=== PATIENT | male | born 1955 | race Caucasian/White ===

== ENCOUNTER 2020-12-19 09:47 | Inpatient (IN) | payer OTHER ==
[2020-12-19] MEDS ORDERED: Furosemide 100 MG/10 ML VIAL ONE (10:03)
[2020-12-19 10:36] LABS: Actual Bicarbonate (HCO3v) 26 mEq/L (22-28); Base Excess 1.3 mEq/L (-2.0 to +3.0); Calcium, Ionized (venous) 1.12 mmol/L (1.16-1.32); Chloride (VBG) 105 mmol/L (98-106); Hemoglobin (Hb) 7.8 g/dL (13.1-17.2); Potassium (VBG) 4.18 mmol/L (3.70-5.30); Puncture Site Other Site; Sodium 138.9 mmol/L (133-146); pH (venous) 7.42 (7.32-7.43)
[2020-12-19 10:52] LABS: #Eosinphils 0.1 10x3/uL (0.0-0.5); #Monocytes 1.5 10x3/uL (0.0-1.1); #Neutrophils 10.1 10x3/uL (1.5-8.4); %Basophils 0.2 % (0.0-2.0); %Eosinophils 1.1 % (0.0-6.0); %Neutrophils 81.3 % (40.0-75.0); Mean Corpuscular HGB CONC 29.8 g/dL (32.0-36.0); Mean Corpuscular Hemoglobin 26.2 pg (27.0-33.0); Mean Platelet Volume 11.6 fl (7.4-10.4); Platelet Count 254 10x3/uL (150-450); RBC Distribution Width 15.6 % (11.5-14.5); Red Blood Cell (RBC) Count 2.67 10x6/uL (4.32-5.72); White Blood Cell (WBC) Count 12.5 10x3/uL (3.5-10.5)
[2020-12-19 11:07] LABS: ALT (SGPT) 10 U/L (8-55); AST (SGOT) 19 U/L (5-34); Albumin 3.8 g/dL (3.4-4.8); Alkaline Phosphatase 118 U/L (40-110); Anion Gap 16 mmol/L (10-20); BUN (Urea Nitrogen) 35 mg/dL (8.4-25.7); Bilirubin, Total 0.7 mg/dL (0.2-1.2); Calc. Creatinine Clearance 0 mL/min (70-130); Calcium 8.9 mg/dL (7.8-10.44); Carbon Dioxide 22 mmol/L (23-31); Chloride 106 mmol/L (98-107); Globulin 3.3 g/dL (2.4-3.5); Glucose 86 mg/dL (80-115); Potassium 4.3 mmol/L (3.5-5.1); Protein, Total 7.1 g/dL (5.8-8.1); Sodium 140 mmol/L (136-145)
[2020-12-19 11:21] LABS: SARS-CoV-2 NAA Rapid Test DETECTED (NotDetected)
[2020-12-19 11:55] LABS: Hypochromia SLIGHT = 6-15 cells (100X) (0-5/hpf); Microcytosis SLIGHT = 6-15 cells (100X) (0-5/hpf); Platelet Morphology Comment Appears Adequate
[2020-12-19] MEDS ORDERED: Dexamethasone 4 mg/ml Vial ONE (12:01)
[2020-12-19 14:26] LABS: #Eosinphils 0.1 10x3/uL (0.0-0.5); #Neutrophils 10.1 10x3/uL (1.5-8.4); %Basophils 0.2 % (0.0-2.0); %Eosinophils 0.5 % (0.0-6.0); %Lymphocytes 3.4 % (18.0-47.0); %Monocytes 8.6 % (0.0-10.0); Hemoglobin 6.9 g/dL (13.5-17.5); Mean Corpuscular HGB CONC 29.2 g/dL (32.0-36.0); Mean Corpuscular Hemoglobin 25.7 pg (27.0-33.0); Mean Corpuscular Volume 87.7 fl (81.2-95.1); Mean Platelet Volume 10.9 fl (7.4-10.4); Platelet Count 252 10x3/uL (150-450); RBC Distribution Width 15.6 % (11.5-14.5); Red Blood Cell (RBC) Count 2.69 10x6/uL (4.32-5.72); White Blood Cell (WBC) Count 11.6 10x3/uL (3.5-10.5)
[2020-12-19] MEDS ORDERED: Acetaminophen 500 MG TAB ONE (14:33)
[2020-12-19 14:47] LABS: Hypochromia SLIGHT = 6-15 cells (100X) (0-5/hpf); Microcytosis SLIGHT = 6-15 cells (100X) (0-5/hpf); Platelet Morphology Comment Appears Adequate
[2020-12-19] MEDS ORDERED: Dextrose 5% in Water 1,000 ML IV PRN (14:49)
[2020-12-19] MEDS ORDERED: Dextrose 50% Abboject 50 ML SYRINGE SLOW IVP PRN (14:49)
[2020-12-19 15:00] LABS: CKMB 2.6 ng/mL (0-6.6)
[2020-12-19 15:22] LABS: Magnesium 2.3 mg/dL (1.6-2.6)
[2020-12-19 16:48] VITALS: BMI 46.9
[2020-12-19] MEDS ORDERED: REMDESIVIR 200 MG in Sodium Chloride 0.9% 250 ML 210 ML IV SCH (20:00)
[2020-12-19] MEDS: hydrALAZINE 25 MG TAB PO SCH (23:04)
[2020-12-19] MEDS: Carvedilol 6.25 MG TAB PO SCH (23:05)
[2020-12-19] MEDS: Oxybutynin 5 MG TAB PO SCH (23:05)
[2020-12-19] MEDS: NPH, Human Insulin Isophane 300 UNIT/3 ML VIAL SC SCH (23:05)
[2020-12-19] MEDS: Docusate 100 MG CAP PO SCH (23:05)
[2020-12-19] MEDS: Ferrous Sulfate 325 MG TAB PO SCH (23:05)
[2020-12-19] MEDS: Terazosin HCl 1 MG CAP PO SCH (23:10)
[2020-12-19 23:34] LABS: Iron 15 ug/dL (65-175); Iron Binding Capacity, Total 263 mcg/dL (261-462)
[2020-12-20 06:02] LABS: #Monocytes 1.2 10x3/uL (0.0-1.1); #Neutrophils 7.6 10x3/uL (1.5-8.4); %Basophils 0.1 % (0.0-2.0); %Lymphocytes 6.6 % (18.0-47.0); %Monocytes 12.4 % (0.0-10.0); %Neutrophils 80.1 % (40.0-75.0); Hemoglobin 6.8 g/dL (13.5-17.5); Mean Corpuscular Hemoglobin 26.3 pg (27.0-33.0); Mean Corpuscular Volume 87.6 fl (81.2-95.1); Mean Platelet Volume 11.6 fl (7.4-10.4); Platelet Count 270 10x3/uL (150-450); RBC Distribution Width 15.6 % (11.5-14.5); Red Blood Cell (RBC) Count 2.59 10x6/uL (4.32-5.72); White Blood Cell (WBC) Count 9.5 10x3/uL (3.5-10.5)
[2020-12-20 06:12] LABS: Phosphorus 5.4 mg/dL (2.3-4.7)
[2020-12-20 06:21] LABS: Anion Gap 18 mmol/L (10-20); BUN (Urea Nitrogen) 47 mg/dL (8.4-25.7); Calc. Creatinine Clearance 62 mL/min (70-130); Calcium 9.2 mg/dL (7.8-10.44); Carbon Dioxide 22 mmol/L (23-31); Chloride 103 mmol/L (98-107); Glucose 230 mg/dL (80-115); Magnesium 2.5 mg/dL (1.6-2.6); Potassium 4.4 mmol/L (3.5-5.1); Sodium 139 mmol/L (136-145)
[2020-12-20 06:25] LABS: INR-International Normal Ratio 1.1; Prothrombin Time 12.4 sec (9.5-12.1)
[2020-12-20] MEDS: Furosemide 40 MG/4 ML VIAL SLOW IVP SCH ×2 (06:36→14:09)
[2020-12-20] MEDS: hydrALAZINE 25 MG TAB PO SCH ×3 (08:41→20:17)
[2020-12-20] MEDS: DULoxetine 30 MG CAP PO SCH (08:42)
[2020-12-20] MEDS: Cholecalciferol (Vitamin D3) 400 UNITS TAB PO SCH (08:42)
[2020-12-20] MEDS: Carvedilol 6.25 MG TAB PO SCH ×2 (08:42→20:17)
[2020-12-20] MEDS: Oxybutynin 5 MG TAB PO SCH ×2 (08:43→20:17)
[2020-12-20] MEDS: Ferrous Sulfate 325 MG TAB PO SCH ×3 (08:43→20:17)
[2020-12-20] MEDS: Amlodipine 10 MG TAB PO SCH (08:43)
[2020-12-20] MEDS: Zinc Sulfate 220 MG CAP PO SCH (08:43)
[2020-12-20] MEDS: Ascorbic Acid 500 mg Chewable Tablet PO SCH (08:43)
[2020-12-20] MEDS: Docusate 100 MG CAP PO SCH ×2 (08:44→20:16)
[2020-12-20] MEDS: Dexamethasone 20 MG/5 ML VIAL SLOW IVP SCH (08:44)
[2020-12-20] MEDS: NPH, Human Insulin Isophane 300 UNIT/3 ML VIAL SC SCH ×2 (08:44→20:54)
[2020-12-20] MEDS ORDERED: Dexamethasone 10 MG in Sodium Chloride 0.9% 50 ML IVPB SCH (09:00)
[2020-12-20] MEDS ORDERED: Aspirin 81 mg Enteric Coated Tablet PO SCH (09:00)
[2020-12-20] MEDS: REMDESIVIR 200 MG in Sodium Chloride 0.9% 250 ML 210 ML IV SCH ×2 (10:57→20:15)
[2020-12-20] MEDS: HumaLOG 300 UNITS/3 ML VIAL SC PRN ×3 (13:00→20:54)
[2020-12-20] MEDS ORDERED: REMDESIVIR 100 MG in Sodium Chloride 0.9% 250 ML 230 ML IV SCH (20:00)
[2020-12-20] MEDS: Terazosin HCl 1 MG CAP PO SCH (20:17)
[2020-12-21] MEDS: Furosemide 40 MG/4 ML VIAL SLOW IVP SCH ×2 (04:57→14:20)
[2020-12-21 05:27] LABS: ALT (SGPT) 12 U/L (8-55); AST (SGOT) 42 U/L (5-34); Albumin 3.5 g/dL (3.4-4.8); Alkaline Phosphatase 105 U/L (40-110); Anion Gap 17 mmol/L (10-20); BUN (Urea Nitrogen) 69 mg/dL (8.4-25.7); Bilirubin, Total 0.3 mg/dL (0.2-1.2); Calc. Creatinine Clearance 54 mL/min (70-130); Calcium 8.8 mg/dL (7.8-10.44); Carbon Dioxide 21 mmol/L (23-31); Chloride 102 mmol/L (98-107); Globulin 3.9 g/dL (2.4-3.5); Glucose 224 mg/dL (80-115); Hemoglobin 6.6 g/dL (13.5-17.5); Magnesium 2.5 mg/dL (1.6-2.6); Mean Corpuscular HGB CONC 30.8 g/dL (32.0-36.0); Mean Corpuscular Hemoglobin 26.6 pg (27.0-33.0); Mean Corpuscular Volume 86.3 fl (81.2-95.1); Mean Platelet Volume 11.9 fl (7.4-10.4); Phosphorus 5.8 mg/dL (2.3-4.7); Platelet Count 283 10x3/uL (150-450); Potassium 4.8 mmol/L (3.5-5.1); Protein, Total 7.4 g/dL (5.8-8.1); RBC Distribution Width 15.3 % (11.5-14.5); Red Blood Cell (RBC) Count 2.48 10x6/uL (4.32-5.72); Sodium 135 mmol/L (136-145); White Blood Cell (WBC) Count 12.5 10x3/uL (3.5-10.5)
[2020-12-21 05:47] LABS: MDiff Complete? YES
[2020-12-21 05:51] LABS: Band 9 % (5-11); Lymphocytes 3 % (21-51); Monocytes 17 % (0-10); Myelocyte 2 % (0-0); Neutrophil 69 % (42-75)
[2020-12-21 05:52] LABS: Platelet Morphology Comment Appears Adequate
[2020-12-21 05:53] LABS: RBC Morphology Normal
[2020-12-21] MEDS: HumaLOG 300 UNITS/3 ML VIAL SC PRN ×4 (06:32→21:58)
[2020-12-21] MEDS: Dexamethasone 20 MG/5 ML VIAL SLOW IVP SCH (08:28)
[2020-12-21] MEDS: Amlodipine 10 MG TAB PO SCH (08:28)
[2020-12-21] MEDS: Zinc Sulfate 220 MG CAP PO SCH (08:28)
[2020-12-21] MEDS: DULoxetine 30 MG CAP PO SCH (08:28)
[2020-12-21] MEDS: Cholecalciferol (Vitamin D3) 400 UNITS TAB PO SCH (08:28)
[2020-12-21] MEDS: Carvedilol 6.25 MG TAB PO SCH ×2 (08:28→21:25)
[2020-12-21] MEDS: Ferrous Sulfate 325 MG TAB PO SCH ×3 (08:28→21:25)
[2020-12-21] MEDS: Ascorbic Acid 500 mg Chewable Tablet PO SCH (08:28)
[2020-12-21] MEDS: Docusate 100 MG CAP PO SCH ×2 (08:28→21:25)
[2020-12-21] MEDS: Oxybutynin 5 MG TAB PO SCH ×2 (08:28→21:25)
[2020-12-21] MEDS: hydrALAZINE 25 MG TAB PO SCH ×3 (08:28→21:25)
[2020-12-21] MEDS: NPH, Human Insulin Isophane 300 UNIT/3 ML VIAL SC SCH ×2 (08:29→21:57)
[2020-12-21 10:03] LABS: Hemoglobin 6.5 g/dL (13.5-17.5); Mean Corpuscular HGB CONC 30.2 g/dL (32.0-36.0); Mean Corpuscular Hemoglobin 25.6 pg (27.0-33.0); Mean Corpuscular Volume 84.6 fl (81.2-95.1); Platelet Count 297 10x3/uL (150-450); RBC Distribution Width 15.6 % (11.5-14.5); Red Blood Cell (RBC) Count 2.54 10x6/uL (4.32-5.72)
[2020-12-21 10:18] LABS: Anion Gap 19 mmol/L (10-20); BUN (Urea Nitrogen) 70 mg/dL (8.4-25.7); Calc. Creatinine Clearance 53 mL/min (70-130); Calcium 8.8 mg/dL (7.8-10.44); Carbon Dioxide 20 mmol/L (23-31); Chloride 102 mmol/L (98-107); Glucose 166 mg/dL (80-115); Potassium 4.5 mmol/L (3.5-5.1); Sodium 136 mmol/L (136-145)
[2020-12-21 10:29] LABS: MDiff Complete? YES
[2020-12-21 10:35] LABS: Lymphocytes 10 % (21-51); Monocytes 10 % (0-10); Neutrophil 80 % (42-75)
[2020-12-21 10:39] LABS: White Blood Cell (WBC) Count 14.4 10x3/uL (3.5-10.5)
[2020-12-21 10:40] LABS: Platelet Morphology Comment Appears Adequate; RBC Morphology Normal
[2020-12-21] MEDS: REMDESIVIR 100 MG in Sodium Chloride 0.9% 250 ML 230 ML IV SCH (21:24)
[2020-12-21] MEDS: Terazosin HCl 1 MG CAP PO SCH (21:26)
[2020-12-22 05:02] LABS: ALT (SGPT) 15 U/L (8-55); AST (SGOT) 45 U/L (5-34); Albumin 3.5 g/dL (3.4-4.8); Alkaline Phosphatase 113 U/L (40-110); Anion Gap 18 mmol/L (10-20); BUN (Urea Nitrogen) 72 mg/dL (8.4-25.7); Bilirubin, Total 0.3 mg/dL (0.2-1.2); Calc. Creatinine Clearance 54 mL/min (70-130); Calcium 8.7 mg/dL (7.8-10.44); Carbon Dioxide 19 mmol/L (23-31); Chloride 102 mmol/L (98-107); Globulin 3.7 g/dL (2.4-3.5); Glucose 215 mg/dL (80-115); Magnesium 2.6 mg/dL (1.6-2.6); Phosphorus 5.7 mg/dL (2.3-4.7); Potassium 4.6 mmol/L (3.5-5.1); Protein, Total 7.2 g/dL (5.8-8.1); Sodium 134 mmol/L (136-145)
[2020-12-22 05:06] LABS: #Monocytes 1.8 10x3/uL (0.0-1.1); #Neutrophils 10.6 10x3/uL (1.5-8.4); %Basophils 0.1 % (0.0-2.0); %Lymphocytes 10.6 % (18.0-47.0); %Monocytes 12.7 % (0.0-10.0); %Neutrophils 75.7 % (40.0-75.0); Hemoglobin 7.8 g/dL (13.5-17.5); Mean Corpuscular HGB CONC 30.4 g/dL (32.0-36.0); Mean Corpuscular Hemoglobin 26.1 pg (27.0-33.0); Mean Platelet Volume 11.6 fl (7.4-10.4); Platelet Count 287 10x3/uL (150-450); Red Blood Cell (RBC) Count 2.99 10x6/uL (4.32-5.72)
[2020-12-22] MEDS: Furosemide 40 MG/4 ML VIAL SLOW IVP SCH ×2 (05:49→15:16)
[2020-12-22] MEDS: HumaLOG 300 UNITS/3 ML VIAL SC PRN ×3 (06:09→22:19)
[2020-12-22] MEDS: Dexamethasone 20 MG/5 ML VIAL SLOW IVP SCH (09:00)
[2020-12-22] MEDS: Carvedilol 6.25 MG TAB PO SCH ×2 (09:01→21:31)
[2020-12-22] MEDS: Oxybutynin 5 MG TAB PO SCH ×2 (09:01→21:31)
[2020-12-22] MEDS: Amlodipine 10 MG TAB PO SCH (09:01)
[2020-12-22] MEDS: Cholecalciferol (Vitamin D3) 400 UNITS TAB PO SCH (09:01)
[2020-12-22] MEDS: hydrALAZINE 25 MG TAB PO SCH ×3 (09:01→21:31)
[2020-12-22] MEDS: NPH, Human Insulin Isophane 300 UNIT/3 ML VIAL SC SCH ×2 (09:01→22:20)
[2020-12-22] MEDS: Ascorbic Acid 500 mg Chewable Tablet PO SCH (09:01)
[2020-12-22] MEDS: Docusate 100 MG CAP PO SCH ×2 (09:01→21:31)
[2020-12-22] MEDS: Zinc Sulfate 220 MG CAP PO SCH (09:01)
[2020-12-22] MEDS: Ferrous Sulfate 325 MG TAB PO SCH ×3 (09:01→21:31)
[2020-12-22] MEDS: DULoxetine 30 MG CAP PO SCH (09:01)
[2020-12-22] MEDS: Terazosin HCl 1 MG CAP PO SCH (22:19)
[2020-12-22] MEDS: REMDESIVIR 100 MG in Sodium Chloride 0.9% 250 ML 230 ML IV SCH (22:55)
[2020-12-23 05:28] LABS: ALT (SGPT) 16 U/L (8-55); AST (SGOT) 39 U/L (5-34); Albumin 3.5 g/dL (3.4-4.8); Alkaline Phosphatase 96 U/L (40-110); Anion Gap 19 mmol/L (10-20); BUN (Urea Nitrogen) 82 mg/dL (8.4-25.7); Bilirubin, Total 0.5 mg/dL (0.2-1.2); Calc. Creatinine Clearance 58 mL/min (70-130); Calcium 8.6 mg/dL (7.8-10.44); Carbon Dioxide 20 mmol/L (23-31); Chloride 100 mmol/L (98-107); Globulin 3.6 g/dL (2.4-3.5); Glucose 230 mg/dL (80-115); Magnesium 2.6 mg/dL (1.6-2.6); Phosphorus 5.7 mg/dL (2.3-4.7); Potassium 4.5 mmol/L (3.5-5.1); Protein, Total 7.1 g/dL (5.8-8.1); Sodium 134 mmol/L (136-145)
[2020-12-23] MEDS: Furosemide 40 MG/4 ML VIAL SLOW IVP SCH ×2 (05:43→14:59)
[2020-12-23] MEDS: HumaLOG 300 UNITS/3 ML VIAL SC PRN ×2 (06:10→21:51)
[2020-12-23 07:01] LABS: Hemoglobin 8.7 g/dL (13.5-17.5); MDiff Complete? YES; Mean Corpuscular HGB CONC 31.6 g/dL (32.0-36.0); Mean Corpuscular Hemoglobin 26.4 pg (27.0-33.0); Mean Corpuscular Volume 83.3 fl (81.2-95.1); Platelet Count 292 10x3/uL (150-450); White Blood Cell (WBC) Count 19.7 10x3/uL (3.5-10.5)
[2020-12-23 07:05] LABS: Band 14 % (5-11); Eosinophils 1 % (0-10); Lymphocytes 16 % (21-51); Monocytes 8 % (0-10); Neutrophil 61 % (42-75)
[2020-12-23 07:14] LABS: Platelet Morphology Comment Appears Adequate; RBC Morphology Normal
[2020-12-23] MEDS: NPH, Human Insulin Isophane 300 UNIT/3 ML VIAL SC SCH ×2 (09:25→21:51)
[2020-12-23] MEDS: hydrALAZINE 25 MG TAB PO SCH ×3 (09:26→21:50)
[2020-12-23] MEDS: Amlodipine 10 MG TAB PO SCH (09:26)
[2020-12-23] MEDS: Carvedilol 6.25 MG TAB PO SCH ×2 (09:26→21:50)
[2020-12-23] MEDS: Zinc Sulfate 220 MG CAP PO SCH (09:26)
[2020-12-23] MEDS: Aspirin 81 mg Enteric Coated Tablet PO SCH (09:27)
[2020-12-23] MEDS: Ferrous Sulfate 325 MG TAB PO SCH ×3 (09:27→21:03)
[2020-12-23] MEDS: DULoxetine 30 MG CAP PO SCH (09:27)
[2020-12-23] MEDS: Oxybutynin 5 MG TAB PO SCH ×2 (09:27→21:03)
[2020-12-23] MEDS: Dexamethasone 20 MG/5 ML VIAL SLOW IVP SCH (09:27)
[2020-12-23] MEDS: Cholecalciferol (Vitamin D3) 400 UNITS TAB PO SCH (09:27)
[2020-12-23] MEDS: Docusate 100 MG CAP PO SCH ×3 (09:27→21:50)
[2020-12-23] MEDS: Ascorbic Acid 500 mg Chewable Tablet PO SCH (09:27)
[2020-12-23] MEDS ORDERED: cefTRIAXone\\ROCEPHIN 2 GM in Sodium Chloride 0.9% 100 ML IVPB SCH (16:30)
[2020-12-23] MEDS: Azithromycin 250 MG TAB PO SCH (17:54)
[2020-12-23] MEDS: cefTRIAXone\\ROCEPHIN 2 GM in Sodium Chloride 0.9% 100 ML IVPB SCH (17:54)
[2020-12-23] MEDS: REMDESIVIR 100 MG in Sodium Chloride 0.9% 250 ML 230 ML IV SCH (21:02)
[2020-12-23] MEDS: Benzonatate 100 MG CAP PO PRN (21:03)
[2020-12-23] MEDS: Terazosin HCl 1 MG CAP PO SCH (21:04)
[2020-12-23 22:12] LABS: Legionella Urinary Ag Negative (Negative); Strep pneumo Urine Ag NEGATIVE (NEGATIVE)
[2020-12-24 05:14] LABS: #Monocytes 1.7 10x3/uL (0.0-1.1); #Neutrophils 14.9 10x3/uL (1.5-8.4); %Basophils 0.1 % (0.0-2.0); %Lymphocytes 10.4 % (18.0-47.0); %Monocytes 8.8 % (0.0-10.0); %Neutrophils 79.3 % (40.0-75.0); Hemoglobin 8.7 g/dL (13.5-17.5); Mean Corpuscular HGB CONC 31.3 g/dL (32.0-36.0); Mean Corpuscular Hemoglobin 26.3 pg (27.0-33.0); Mean Platelet Volume 11.3 fl (7.4-10.4); Platelet Count 293 10x3/uL (150-450); RBC Distribution Width 15.3 % (11.5-14.5); Red Blood Cell (RBC) Count 3.31 10x6/uL (4.32-5.72); White Blood Cell (WBC) Count 18.8 10x3/uL (3.5-10.5)
[2020-12-24] MEDS: Furosemide 40 MG/4 ML VIAL SLOW IVP SCH ×2 (05:49→12:30)
[2020-12-24 05:52] LABS: ALT (SGPT) 18 U/L (8-55); AST (SGOT) 35 U/L (5-34); Albumin 3.4 g/dL (3.4-4.8); Alkaline Phosphatase 102 U/L (40-110); Anion Gap 16 mmol/L (10-20); BUN (Urea Nitrogen) 93 mg/dL (8.4-25.7); Bilirubin, Total 0.3 mg/dL (0.2-1.2); Calc. Creatinine Clearance 59 mL/min (70-130); Calcium 9.1 mg/dL (7.8-10.44); Carbon Dioxide 22 mmol/L (23-31); Chloride 101 mmol/L (98-107); Globulin 3.8 g/dL (2.4-3.5); Glucose 273 mg/dL (80-115); Magnesium 2.8 mg/dL (1.6-2.6); Phosphorus 5.9 mg/dL (2.3-4.7); Potassium 4.2 mmol/L (3.5-5.1); Protein, Total 7.2 g/dL (5.8-8.1); Sodium 135 mmol/L (136-145)
[2020-12-24] MEDS: HumaLOG 300 UNITS/3 ML VIAL SC PRN ×4 (06:10→21:19)
[2020-12-24] MEDS: Docusate 100 MG CAP PO SCH ×2 (08:56→20:44)
[2020-12-24] MEDS: DULoxetine 30 MG CAP PO SCH (08:56)
[2020-12-24] MEDS: Oxybutynin 5 MG TAB PO SCH ×2 (08:56→20:44)
[2020-12-24] MEDS: Ferrous Sulfate 325 MG TAB PO SCH ×3 (08:56→20:43)
[2020-12-24] MEDS: Amlodipine 10 MG TAB PO SCH (08:57)
[2020-12-24] MEDS: Aspirin 81 mg Enteric Coated Tablet PO SCH (08:57)
[2020-12-24] MEDS: Cholecalciferol (Vitamin D3) 400 UNITS TAB PO SCH (08:57)
[2020-12-24] MEDS: Ascorbic Acid 500 mg Chewable Tablet PO SCH (08:57)
[2020-12-24] MEDS: hydrALAZINE 25 MG TAB PO SCH ×3 (08:57→21:17)
[2020-12-24] MEDS: Carvedilol 6.25 MG TAB PO SCH ×2 (08:57→21:18)
[2020-12-24] MEDS: Zinc Sulfate 220 MG CAP PO SCH (08:58)
[2020-12-24] MEDS: Dexamethasone 20 MG/5 ML VIAL SLOW IVP SCH (08:58)
[2020-12-24] MEDS: NPH, Human Insulin Isophane 300 UNIT/3 ML VIAL SC SCH (08:59)
[2020-12-24] MEDS: Azithromycin 250 MG TAB PO SCH (17:44)
[2020-12-24] MEDS: cefTRIAXone\\ROCEPHIN 2 GM in Sodium Chloride 0.9% 100 ML IVPB SCH (17:44)
[2020-12-24] MEDS: Terazosin HCl 1 MG CAP PO SCH (20:44)
[2020-12-24] MEDS: Benzonatate 100 MG CAP PO PRN (20:45)
[2020-12-24] MEDS: Acetaminophen 325 MG TAB PO PRN (20:45)
[2020-12-24] MEDS: REMDESIVIR 100 MG in Sodium Chloride 0.9% 250 ML 230 ML IV SCH (20:46)
[2020-12-24] MEDS ORDERED: NPH, Human Insulin Isophane 300 UNIT/3 ML VIAL SC SCH (21:00)
[2020-12-25 05:01] LABS: ALT (SGPT) 16 U/L (8-55); AST (SGOT) 27 U/L (5-34); Albumin 3.5 g/dL (3.4-4.8); Alkaline Phosphatase 108 U/L (40-110); Anion Gap 18 mmol/L (10-20); BUN (Urea Nitrogen) 97 mg/dL (8.4-25.7); Bilirubin, Total 0.3 mg/dL (0.2-1.2); Calc. Creatinine Clearance 55 mL/min (70-130); Carbon Dioxide 20 mmol/L (23-31); Chloride 101 mmol/L (98-107); Globulin 3.8 g/dL (2.4-3.5); Glucose 361 mg/dL (80-115); Protein, Total 7.3 g/dL (5.8-8.1); Sodium 134 mmol/L (136-145)
[2020-12-25] MEDS: Furosemide 40 MG/4 ML VIAL SLOW IVP SCH ×2 (05:13→15:30)
[2020-12-25] MEDS: Acetaminophen 325 MG TAB PO PRN (05:13)
[2020-12-25] MEDS: Benzonatate 100 MG CAP PO PRN (05:14)
[2020-12-25] MEDS: HumaLOG 300 UNITS/3 ML VIAL SC PRN ×4 (05:43→22:09)
[2020-12-25] MEDS ORDERED: NPH, Human Insulin Isophane 300 UNIT/3 ML VIAL SC SCH (09:00)
[2020-12-25] MEDS: Ferrous Sulfate 325 MG TAB PO SCH ×3 (09:45→21:13)
[2020-12-25] MEDS: Oxybutynin 5 MG TAB PO SCH ×2 (09:45→21:14)
[2020-12-25] MEDS: Zinc Sulfate 220 MG CAP PO SCH (09:45)
[2020-12-25] MEDS: Amlodipine 10 MG TAB PO SCH (09:45)
[2020-12-25] MEDS: Cholecalciferol (Vitamin D3) 400 UNITS TAB PO SCH (09:45)
[2020-12-25] MEDS: Dexamethasone 20 MG/5 ML VIAL SLOW IVP SCH (09:45)
[2020-12-25] MEDS: Carvedilol 6.25 MG TAB PO SCH ×2 (09:45→21:13)
[2020-12-25] MEDS: Docusate 100 MG CAP PO SCH ×2 (09:46→21:13)
[2020-12-25] MEDS: hydrALAZINE 25 MG TAB PO SCH ×3 (09:46→21:13)
[2020-12-25] MEDS: Ascorbic Acid 500 mg Chewable Tablet PO SCH (09:46)
[2020-12-25] MEDS: Aspirin 81 mg Enteric Coated Tablet PO SCH (09:46)
[2020-12-25] MEDS: DULoxetine 30 MG CAP PO SCH (12:30)
[2020-12-25] MEDS: Azithromycin 250 MG TAB PO SCH (18:00)
[2020-12-25] MEDS: cefTRIAXone\\ROCEPHIN 2 GM in Sodium Chloride 0.9% 100 ML IVPB SCH (18:06)
[2020-12-25] MEDS: Terazosin HCl 1 MG CAP PO SCH (21:14)
[2020-12-25] MEDS: NPH, Human Insulin Isophane 300 UNIT/3 ML VIAL SC SCH (22:09)
[2020-12-26] MEDS: Furosemide 40 MG/4 ML VIAL SLOW IVP SCH ×2 (06:12→15:00)
[2020-12-26] MEDS: HumaLOG 300 UNITS/3 ML VIAL SC PRN ×4 (06:36→22:26)
[2020-12-26 07:14] LABS: #Basophils 0.1 10x3/uL (0.0-0.2); #Monocytes 1.3 10x3/uL (0.0-1.1); #Neutrophils 14.4 10x3/uL (1.5-8.4); %Basophils 0.3 % (0.0-2.0); %Lymphocytes 14.7 % (18.0-47.0); %Monocytes 6.6 % (0.0-10.0); %Neutrophils 73.6 % (40.0-75.0); Hemoglobin 8.9 g/dL (13.5-17.5); Mean Corpuscular HGB CONC 31.1 g/dL (32.0-36.0); Mean Corpuscular Hemoglobin 26.4 pg (27.0-33.0); Mean Corpuscular Volume 84.9 fl (81.2-95.1); Mean Platelet Volume 11.3 fl (7.4-10.4); Platelet Count 317 10x3/uL (150-450); RBC Distribution Width 15.3 % (11.5-14.5); Red Blood Cell (RBC) Count 3.37 10x6/uL (4.32-5.72); White Blood Cell (WBC) Count 19.5 10x3/uL (3.5-10.5)
[2020-12-26 07:26] LABS: ALT (SGPT) 15 U/L (8-55); AST (SGOT) 22 U/L (5-34); Albumin 3.3 g/dL (3.4-4.8); Alkaline Phosphatase 97 U/L (40-110); Anion Gap 18 mmol/L (10-20); BUN (Urea Nitrogen) 98 mg/dL (8.4-25.7); Bilirubin, Total 0.3 mg/dL (0.2-1.2); Calc. Creatinine Clearance 64 mL/min (70-130); Calcium 8.8 mg/dL (7.8-10.44); Carbon Dioxide 21 mmol/L (23-31); Chloride 101 mmol/L (98-107); Globulin 3.6 g/dL (2.4-3.5); Glucose 227 mg/dL (80-115); Magnesium 2.8 mg/dL (1.6-2.6); Phosphorus 5.2 mg/dL (2.3-4.7); Potassium 4.5 mmol/L (3.5-5.1); Protein, Total 6.9 g/dL (5.8-8.1); Sodium 135 mmol/L (136-145)
[2020-12-26] MEDS: Carvedilol 6.25 MG TAB PO SCH ×2 (08:05→21:59)
[2020-12-26] MEDS: Dexamethasone 20 MG/5 ML VIAL SLOW IVP SCH (08:05)
[2020-12-26] MEDS: hydrALAZINE 25 MG TAB PO SCH ×4 (08:05→21:59)
[2020-12-26] MEDS: Zinc Sulfate 220 MG CAP PO SCH (08:06)
[2020-12-26] MEDS: Amlodipine 10 MG TAB PO SCH (08:06)
[2020-12-26] MEDS: Ascorbic Acid 500 mg Chewable Tablet PO SCH (08:06)
[2020-12-26] MEDS: DULoxetine 30 MG CAP PO SCH (08:06)
[2020-12-26] MEDS: Aspirin 81 mg Enteric Coated Tablet PO SCH (08:06)
[2020-12-26] MEDS: Oxybutynin 5 MG TAB PO SCH ×2 (08:06→21:59)
[2020-12-26] MEDS: Docusate 100 MG CAP PO SCH ×2 (08:07→21:59)
[2020-12-26] MEDS: Ferrous Sulfate 325 MG TAB PO SCH ×3 (08:07→21:59)
[2020-12-26] MEDS: Cholecalciferol (Vitamin D3) 400 UNITS TAB PO SCH (08:07)
[2020-12-26] MEDS: NPH, Human Insulin Isophane 300 UNIT/3 ML VIAL SC SCH ×2 (09:30→22:25)
[2020-12-26] MEDS: Azithromycin 250 MG TAB PO SCH (17:28)
[2020-12-26] MEDS: cefTRIAXone\\ROCEPHIN 2 GM in Sodium Chloride 0.9% 100 ML IVPB SCH (18:43)
[2020-12-26] MEDS: Terazosin HCl 1 MG CAP PO SCH (21:59)
[2020-12-27] MEDS: Ventolin HFA Inhaler 60 PUFF INHALER INH SCH ×8 (02:15→22:50)
[2020-12-27 06:20] LABS: Hemoglobin 9.1 g/dL (13.5-17.5); Mean Corpuscular HGB CONC 30.6 g/dL (32.0-36.0); Mean Corpuscular Hemoglobin 25.8 pg (27.0-33.0); Mean Corpuscular Volume 84.1 fl (81.2-95.1); Platelet Count 324 10x3/uL (150-450); RBC Distribution Width 15.3 % (11.5-14.5); Red Blood Cell (RBC) Count 3.53 10x6/uL (4.32-5.72); White Blood Cell (WBC) Count 18.2 10x3/uL (3.5-10.5)
[2020-12-27] MEDS: HumaLOG 300 UNITS/3 ML VIAL SC PRN ×4 (06:39→21:13)
[2020-12-27 07:05] LABS: MDiff Complete? YES
[2020-12-27 07:06] LABS: ALT (SGPT) 17 U/L (8-55); AST (SGOT) 19 U/L (5-34); Albumin 3.3 g/dL (3.4-4.8); Alkaline Phosphatase 106 U/L (40-110); Anion Gap 16 mmol/L (10-20); BUN (Urea Nitrogen) 99 mg/dL (8.4-25.7); Bilirubin, Total 0.3 mg/dL (0.2-1.2); Calc. Creatinine Clearance 65 mL/min (70-130); Calcium 8.7 mg/dL (7.8-10.44); Carbon Dioxide 22 mmol/L (23-31); Chloride 99 mmol/L (98-107); Globulin 3.6 g/dL (2.4-3.5); Glucose 327 mg/dL (80-115); Potassium 4.4 mmol/L (3.5-5.1); Protein, Total 6.9 g/dL (5.8-8.1); Sodium 133 mmol/L (136-145)
[2020-12-27 07:09] LABS: Band 4 % (5-11); Lymphocytes 20 % (21-51); Monocytes 2 % (0-10); Neutrophil 74 % (42-75)
[2020-12-27 07:10] LABS: Platelet Morphology Comment Appears Adequate; RBC Morphology Normal
[2020-12-27 08:41] LABS: Mean Platelet Volume 11.5 fl (7.4-10.4)
[2020-12-27] MEDS: Amlodipine 10 MG TAB PO SCH (08:57)
[2020-12-27] MEDS: Ascorbic Acid 500 mg Chewable Tablet PO SCH (08:57)
[2020-12-27] MEDS: Zinc Sulfate 220 MG CAP PO SCH (08:57)
[2020-12-27] MEDS: Carvedilol 6.25 MG TAB PO SCH ×2 (08:57→21:12)
[2020-12-27] MEDS: Cholecalciferol (Vitamin D3) 400 UNITS TAB PO SCH (08:57)
[2020-12-27] MEDS: Oxybutynin 5 MG TAB PO SCH ×2 (08:58→20:19)
[2020-12-27] MEDS: hydrALAZINE 25 MG TAB PO SCH ×3 (08:58→21:11)
[2020-12-27] MEDS: Ferrous Sulfate 325 MG TAB PO SCH ×3 (08:58→20:19)
[2020-12-27] MEDS: Aspirin 81 mg Enteric Coated Tablet PO SCH (08:58)
[2020-12-27] MEDS: Docusate 100 MG CAP PO SCH ×2 (08:58→20:19)
[2020-12-27] MEDS: DULoxetine 30 MG CAP PO SCH (08:58)
[2020-12-27] MEDS: Furosemide 40 MG/4 ML VIAL SLOW IVP SCH (08:59)
[2020-12-27] MEDS: NPH, Human Insulin Isophane 300 UNIT/3 ML VIAL SC SCH ×2 (08:59→21:12)
[2020-12-27] MEDS ORDERED: Dexamethasone 20 MG/5 ML VIAL SLOW IVP SCH (09:00)
[2020-12-27] MEDS ORDERED: Tiotropium Bromide 4 GM INHALER IH SCH (14:00)
[2020-12-27] MEDS: Azithromycin 250 MG TAB PO SCH (17:59)
[2020-12-27] MEDS: guaiFENesin/Codeine Phosphate 100 mg/10 mg 5 ml UD Cup PO PRN (20:19)
[2020-12-27] MEDS: Terazosin HCl 1 MG CAP PO SCH (20:19)
[2020-12-27] MEDS: Acetaminophen 325 MG TAB PO PRN (20:20)
[2020-12-27] MEDS: cefTRIAXone\\ROCEPHIN 2 GM in Sodium Chloride 0.9% 100 ML IVPB SCH (22:38)
[2020-12-27] MEDS: Dexamethasone 20 MG/5 ML VIAL SLOW IVP SCH (22:39)
[2020-12-27 23:36] LABS: Mycoplasma pneumoniae IgG AB 245 U/mL (0-99); Mycoplasma pneumoniae IgM AB Less than 770 U/mL (0-769)
[2020-12-28] MEDS: Ventolin HFA Inhaler 60 PUFF INHALER INH SCH ×6 (03:20→23:00)
[2020-12-28 04:29] LABS: ALT (SGPT) 16 U/L (8-55); AST (SGOT) 19 U/L (5-34); Albumin 3.3 g/dL (3.4-4.8); Alkaline Phosphatase 94 U/L (40-110); Anion Gap 16 mmol/L (10-20); BUN (Urea Nitrogen) 93 mg/dL (8.4-25.7); Bilirubin, Total 0.2 mg/dL (0.2-1.2); Calc. Creatinine Clearance 65 mL/min (70-130); Calcium 8.8 mg/dL (7.8-10.44); Carbon Dioxide 22 mmol/L (23-31); Chloride 103 mmol/L (98-107); Globulin 3.5 g/dL (2.4-3.5); Glucose 165 mg/dL (80-115); Protein, Total 6.8 g/dL (5.8-8.1); Sodium 136 mmol/L (136-145)
[2020-12-28 05:07] LABS: Hemoglobin 8.8 g/dL (13.5-17.5); Mean Corpuscular HGB CONC 30.8 g/dL (32.0-36.0); Mean Corpuscular Hemoglobin 26.1 pg (27.0-33.0); Mean Corpuscular Volume 84.9 fl (81.2-95.1); Mean Platelet Volume 11.5 fl (7.4-10.4); Platelet Count 331 10x3/uL (150-450); RBC Distribution Width 15.2 % (11.5-14.5); Red Blood Cell (RBC) Count 3.37 10x6/uL (4.32-5.72); White Blood Cell (WBC) Count 21.8 10x3/uL (3.5-10.5)
[2020-12-28 06:29] LABS: MDiff Complete? YES
[2020-12-28 06:33] LABS: Band 3 % (5-11); Lymphocytes 12 % (21-51); Metamyelocyte 2 % (0-0); Monocytes 10 % (0-10); Neutrophil 66 % (42-75); Reactive Lymphocytes 7 % (0-10)
[2020-12-28] MEDS: Tiotropium Bromide 4 GM INHALER IH SCH (07:06)
[2020-12-28] MEDS: Dexamethasone 20 MG/5 ML VIAL SLOW IVP SCH ×2 (08:19→20:35)
[2020-12-28] MEDS: Aspirin 81 mg Enteric Coated Tablet PO SCH (08:19)
[2020-12-28] MEDS: Furosemide 40 MG/4 ML VIAL SLOW IVP SCH (08:19)
[2020-12-28] MEDS: Ascorbic Acid 500 mg Chewable Tablet PO SCH (08:19)
[2020-12-28] MEDS: DULoxetine 30 MG CAP PO SCH (08:19)
[2020-12-28] MEDS: Amlodipine 10 MG TAB PO SCH (08:19)
[2020-12-28] MEDS: Zinc Sulfate 220 MG CAP PO SCH (08:19)
[2020-12-28] MEDS: Ferrous Sulfate 325 MG TAB PO SCH ×3 (08:19→20:35)
[2020-12-28] MEDS: hydrALAZINE 25 MG TAB PO SCH ×3 (08:19→21:55)
[2020-12-28] MEDS: Carvedilol 6.25 MG TAB PO SCH ×2 (08:19→21:55)
[2020-12-28] MEDS: Polyethylene Glycol 3350 17 GM Packet PO SCH (08:19)
[2020-12-28] MEDS: NPH, Human Insulin Isophane 300 UNIT/3 ML VIAL SC SCH ×2 (08:20→21:50)
[2020-12-28] MEDS: Docusate 100 MG CAP PO SCH ×2 (08:20→20:34)
[2020-12-28] MEDS: Cholecalciferol (Vitamin D3) 400 UNITS TAB PO SCH (08:20)
[2020-12-28] MEDS: Oxybutynin 5 MG TAB PO SCH ×2 (08:20→20:36)
[2020-12-28] MEDS: HumaLOG 300 UNITS/3 ML VIAL SC PRN ×3 (12:51→21:50)
[2020-12-28] MEDS: Azithromycin 250 MG TAB PO SCH (15:59)
[2020-12-28] MEDS: Terazosin HCl 1 MG CAP PO SCH (20:34)
[2020-12-28] MEDS: guaiFENesin/Codeine Phosphate 100 mg/10 mg 5 ml UD Cup PO PRN (20:37)
[2020-12-28] MEDS: Acetaminophen 325 MG TAB PO PRN (20:37)
[2020-12-28] MEDS ORDERED: cefTRIAXone\\ROCEPHIN 2 GM in Sodium Chloride 0.9% 100 ML IVPB SCH (22:00)
[2020-12-29] MEDS: HumaLOG 300 UNITS/3 ML VIAL SC PRN ×6 (00:15→21:03)
[2020-12-29] MEDS: Ventolin HFA Inhaler 60 PUFF INHALER INH SCH ×6 (03:20→23:20)
[2020-12-29 04:28] LABS: Mean Corpuscular HGB CONC 30.6 g/dL (32.0-36.0); Mean Corpuscular Hemoglobin 26.3 pg (27.0-33.0); Mean Platelet Volume 11.6 fl (7.4-10.4); Platelet Count 329 10x3/uL (150-450); RBC Distribution Width 15.1 % (11.5-14.5); Red Blood Cell (RBC) Count 3.42 10x6/uL (4.32-5.72); White Blood Cell (WBC) Count 19.1 10x3/uL (3.5-10.5)
[2020-12-29 04:43] LABS: ALT (SGPT) 18 U/L (8-55); AST (SGOT) 19 U/L (5-34); Albumin 3.4 g/dL (3.4-4.8); Alkaline Phosphatase 97 U/L (40-110); Anion Gap 18 mmol/L (10-20); BUN (Urea Nitrogen) 95 mg/dL (8.4-25.7); Bilirubin, Total 0.2 mg/dL (0.2-1.2); Calc. Creatinine Clearance 65 mL/min (70-130); Carbon Dioxide 22 mmol/L (23-31); Chloride 101 mmol/L (98-107); Globulin 3.6 g/dL (2.4-3.5); Glucose 244 mg/dL (80-115); Sodium 136 mmol/L (136-145)
[2020-12-29 06:39] LABS: MDiff Complete? YES
[2020-12-29 06:44] LABS: Band 2 % (5-11); Lymphocytes 17 % (21-51); Monocytes 6 % (0-10); Neutrophil 74 % (42-75); Reactive Lymphocytes 1 % (0-10)
[2020-12-29 06:47] LABS: Platelet Morphology Comment Appears Adequate; RBC Morphology Normal
[2020-12-29] MEDS: Furosemide 40 MG/4 ML VIAL SLOW IVP SCH (08:44)
[2020-12-29] MEDS: Ascorbic Acid 500 mg Chewable Tablet PO SCH (08:44)
[2020-12-29] MEDS: Docusate 100 MG CAP PO SCH ×3 (08:44→21:04)
[2020-12-29] MEDS: Dexamethasone 20 MG/5 ML VIAL SLOW IVP SCH (08:44)
[2020-12-29] MEDS: Polyethylene Glycol 3350 17 GM Packet PO SCH (08:44)
[2020-12-29] MEDS: DULoxetine 30 MG CAP PO SCH (08:44)
[2020-12-29] MEDS: Ferrous Sulfate 325 MG TAB PO SCH ×3 (08:44→20:14)
[2020-12-29] MEDS: Carvedilol 6.25 MG TAB PO SCH ×2 (08:45→20:15)
[2020-12-29] MEDS: Zinc Sulfate 220 MG CAP PO SCH (08:45)
[2020-12-29] MEDS: hydrALAZINE 25 MG TAB PO SCH ×3 (08:45→20:14)
[2020-12-29] MEDS: Oxybutynin 5 MG TAB PO SCH ×2 (08:45→20:15)
[2020-12-29] MEDS: Aspirin 81 mg Enteric Coated Tablet PO SCH (08:45)
[2020-12-29] MEDS: Amlodipine 10 MG TAB PO SCH (08:45)
[2020-12-29] MEDS: Cholecalciferol (Vitamin D3) 400 UNITS TAB PO SCH (08:45)
[2020-12-29] MEDS: NPH, Human Insulin Isophane 300 UNIT/3 ML VIAL SC SCH ×2 (08:45→21:02)
[2020-12-29] MEDS: Tiotropium Bromide 4 GM INHALER IH SCH (10:50)
[2020-12-29] MEDS ORDERED: Furosemide 40 MG/4 ML VIAL SLOW IVP SCH (13:00)
[2020-12-29] MEDS: Terazosin HCl 1 MG CAP PO SCH (20:14)
[2020-12-30] MEDS: Ventolin HFA Inhaler 60 PUFF INHALER INH SCH ×3 (03:20→11:04)
[2020-12-30 04:17] LABS: ALT (SGPT) 20 U/L (8-55); AST (SGOT) 18 U/L (5-34); Albumin 3.2 g/dL (3.4-4.8); Alkaline Phosphatase 111 U/L (40-110); Anion Gap 15 mmol/L (10-20); BUN (Urea Nitrogen) 97 mg/dL (8.4-25.7); Bilirubin, Total 0.2 mg/dL (0.2-1.2); Calc. Creatinine Clearance 71 mL/min (70-130); Carbon Dioxide 22 mmol/L (23-31); Chloride 102 mmol/L (98-107); Globulin 3.5 g/dL (2.4-3.5); Glucose 343 mg/dL (80-115); Potassium 4.8 mmol/L (3.5-5.1); Protein, Total 6.7 g/dL (5.8-8.1); Sodium 134 mmol/L (136-145)
[2020-12-30 04:23] LABS: Hemoglobin 9.1 g/dL (13.5-17.5); Mean Corpuscular HGB CONC 31.1 g/dL (32.0-36.0); Mean Corpuscular Hemoglobin 26.7 pg (27.0-33.0); Mean Corpuscular Volume 85.9 fl (81.2-95.1); Mean Platelet Volume 11.6 fl (7.4-10.4); Platelet Count 323 10x3/uL (150-450); RBC Distribution Width 15.4 % (11.5-14.5); Red Blood Cell (RBC) Count 3.41 10x6/uL (4.32-5.72)
[2020-12-30 04:54] LABS: MDiff Complete? YES
[2020-12-30 04:56] LABS: Lymphocytes 20 % (21-51); Monocytes 6 % (0-10); Neutrophil 74 % (42-75)
[2020-12-30 04:58] LABS: Platelet Morphology Comment Appears Adequate; RBC Morphology Normal
[2020-12-30] MEDS: HumaLOG 300 UNITS/3 ML VIAL SC PRN ×2 (05:32→11:59)
[2020-12-30] MEDS: Tiotropium Bromide 4 GM INHALER IH SCH (08:11)
[2020-12-30] MEDS: DULoxetine 30 MG CAP PO SCH (08:12)
[2020-12-30] MEDS: Polyethylene Glycol 3350 17 GM Packet PO SCH (08:12)
[2020-12-30] MEDS: Zinc Sulfate 220 MG CAP PO SCH (08:12)
[2020-12-30] MEDS: hydrALAZINE 25 MG TAB PO SCH (08:12)
[2020-12-30] MEDS: Oxybutynin 5 MG TAB PO SCH (08:13)
[2020-12-30] MEDS: Ferrous Sulfate 325 MG TAB PO SCH (08:13)
[2020-12-30] MEDS: Ascorbic Acid 500 mg Chewable Tablet PO SCH (08:13)
[2020-12-30] MEDS: Carvedilol 6.25 MG TAB PO SCH (08:13)
[2020-12-30] MEDS: Docusate 100 MG CAP PO SCH (08:13)
[2020-12-30] MEDS: Aspirin 81 mg Enteric Coated Tablet PO SCH (08:13)
[2020-12-30] MEDS: Cholecalciferol (Vitamin D3) 400 UNITS TAB PO SCH (08:14)
[2020-12-30] MEDS: Furosemide 40 MG/4 ML VIAL SLOW IVP SCH (08:15)
[2020-12-30] MEDS: NPH, Human Insulin Isophane 300 UNIT/3 ML VIAL SC SCH (08:16)
[2020-12-30] MEDS ORDERED: Dexamethasone 20 MG/5 ML VIAL SLOW IVP SCH (09:00)
[2020-12-30] MEDS ORDERED: Losartan 25 MG TAB PO SCH (09:00)
[2020-12-30 12:12] VITALS: BP 111/52; TEMP 98.2
== END 2020-12-30 16:20 | DRG 177 ==
LOC: SUATTDRO 09:47 → CSHERS 09:47 → CSHTELE 15:59 → OBSVTOIN 16:00 → EEVIPCON 16:00
PROVIDERS: ADMIT Family Medicine; ATTEND Family Medicine
PROC: 3E0333Z Introduction of Anti-inflammatory into Peripheral Vein, Percutaneous Approach (ICD-10-PCS; principal; 2020-12-19)
PROC: 8E0ZXY6 Isolation (ICD-10-PCS; 2020-12-19)
PROC: XW033E5 Introduction of Remdesivir Anti-infective into Peripheral Vein, Percutaneous Approach, New Technology Group 5 (ICD-10-PCS; 2020-12-19)
PROC: 5A09357 Assistance with Respiratory Ventilation, Less than 24 Consecutive Hours, Continuous Positive Airway Pressure (ICD-10-PCS; 2020-12-19)
PROC: 30233N1 Transfusion of Nonautologous Red Blood Cells into Peripheral Vein, Percutaneous Approach (ICD-10-PCS; 2020-12-20)
DX: U07.1 COVID-19 (principal); J96.01 Acute respiratory failure with hypoxia; I50.33 Acute on chronic diastolic (congestive) heart failure; J15.6 Pneumonia due to other Gram-negative bacteria; I21.A1 Myocardial infarction type 2; I13.0 Hypertensive heart and chronic kidney disease with heart failure and stage 1 through stage 4 chronic kidney disease, or unspecified chronic kidney disease; N17.9 Acute kidney failure, unspecified; N18.4 Chronic kidney disease, stage 4 (severe); Z68.41 Body mass index [BMI] 40.0-44.9, adult; I25.10 Atherosclerotic heart disease of native coronary artery without angina pectoris; E11.22 Type 2 diabetes mellitus with diabetic chronic kidney disease; M19.90 Unspecified osteoarthritis, unspecified site; F32.A Depression, unspecified; E87.5 Hyperkalemia; D50.9 Iron deficiency anemia, unspecified; E66.01 Morbid (severe) obesity due to excess calories; Z79.899 Other long term (current) drug therapy; Z79.4 Long term (current) use of insulin; Z95.1 Presence of aortocoronary bypass graft; Z90.49 Acquired absence of other specified parts of digestive tract; Z87.891 Personal history of nicotine dependence
CPT/HCPCS: 36415; 36416; 36430; 71045; 76700; 80048; 80053; 82274; 82553; 82728; 82805; 83540; 83550; 83735; 83880; 84100; 84145; 84443; 84484; 85025; 85379; 85610; 85730; 86140; 86850; 86900; 86901; 87070; 87081; 87205; 87449; 87804; 87899; 93005; 93306; 93970; 94640; 94660; 94664; 94667; 94668; 94760; 94762; 96374; 96375; J0696; J1100; J1815; J1940; J3490; J7050; J7620; P9016; U0002